=== PATIENT | male | born 1965 | race Hispanic/Latino ===

== ENCOUNTER 2020-02-12 13:19 | Emergency (ER) | payer OTHER, SELFPAY ==
[2020-02-12 13:33] VITALS: BP 173/90; PULSE 63; RESP 18; TEMP 36.7; O2SAT 97; BMI 31.5
[2020-02-12] MEDS: PROPARACAINE 0.5% OPHTH SOL 1 DROPS EYE-RIGHT (14:30)
[2020-02-12] MEDS: FLUORESCEIN 1 MG STRIP EYE-RIGHT (14:30)
[2020-02-12] MEDS: TET,DIPH,PERTUSS(ACELL),VAC/PF 0.5 ML SYRINGE IM (15:01)
[2020-02-12 15:10] VITALS: BP 143/83; PULSE 63; RESP 16; TEMP 36.7; O2SAT 97
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
== END 2020-02-12 15:34 | disposition home or self-care (01) ==
PROVIDERS: Emergency Provider Nurse Practitioner Family
DX: S05.01XA Injury of conjunctiva and corneal abrasion without foreign body, right eye, initial encounter (principal); Y99.0 Civilian activity done for income or pay; Z23 Encounter for immunization
CPT/HCPCS: 90471; 99283; 90715